=== PATIENT | female | born 1995 | race Caucasian/White ===

== ENCOUNTER 2017-02-10 23:28 | Emergency (ER) | payer OTHER ==
--- NOTE | 2017-02-11 03:05 | ED NURSING NOTES ---
Clinical Report - Nurses [facility] [address] [place] [address] 02/10/2017 23:32 Patient: HUMERA SYED TRIAGE Triage time 23:53. Acuity: LEVEL 3. Chief Complaint: ABDOMINAL PAIN and CONSTIPATION. 23:59. Alert. SEPSIS SCREEN: Sepsis Screen. Negative (no infection suspected/documented). --23:59 William Sosa R.N. 23:53 02/10/17. BP: 117/82. HR: 85. RR: 13. O2 saturation: 100%. Temp: 98.1 F (oral). Pain level now: 03/21. --23:59 William Sosa R.N. Weight: 62.5 kg stated. Height/Length: 64 inches Per Patient. BMI: 23.7. --23:55 William Sosa R.N. Medications Lexapro Oral 10 mg, daily. --23:54 William Sosa R.N. Iron Oral 324mg, daily. --23:54 William Sosa R.N. Medication/allergy information source: the patient. --23:59 William Sosa R.N. Allergies Amoxicillin. --23:55 William Sosa R.N. History Arrived by private vehicle. Historian: patient. Accompanied by friend. Primary physician (Talia). Onset. (1 weeks ago). ( Patient reports RLQ ABD pain for about 1 week, states she had heavier flow during her period last week, ,also reports some constipation, last BM today). Treatment VINEYARD TENDER: None. PAST MEDICAL HX: Immunizations: up-to-date. Last normal menstrual period- 1 weeks ago. SOCIAL HX: Never smoker. Occasional alcohol use. No drug use. No recent travel. No infectious disease exposure. ABUSE ASSESSMENT: No report of abuse. FALL RISK ASSESSMENT: Fall risk assessment completed. No fall risk identified. NUTRITIONAL RISK ASSESSMENT: The nutritional risk assessment revealed no deficiencies. FUNCTIONAL ASSESSMENT: Functional assessment: no impairments noted. LEARNING NEEDS ASSESSMENT: The learning needs assessment revealed no barriers. SKIN INTEGRITY ASSESSMENT: Skin integrity risk assessment completed. No skin integrity risk identified. --23:59 William Sosa R.N. PROBLEMS: Grave's Disease. --23:55 William Sosa R.N. ADDITIONAL SURGERIES: Ankle surgery . --23:55 William Sosa R.N. Interventions ID band on patient. To treatment room. --23:59 William Sosa R.N. PHYSICAL ASSESSMENT 00:01. Ambulatory to room. Patient gowned. GENERAL / NEURO / PSYCH: Alert. Oriented X 4. HEENT: Mucous membranes are pink. RESPIRATORY: Respirations not labored. SKIN: Skin is warm and dry. --00:01 William Sosa R.N. NURSING PROGRESS NOTES 00:00. Head of bed elevated. Two patient identifiers checked. Call light placed in reach. Bed placed in lowest position. Brakes of bed on. Patient ready for evaluation- chart flagged. --00:00 William Sosa R.N. 23:46. Patient ID band checked for patient name and birthdate: patient confirmed. Clean catch urine collected with return of yellow-colored clear urine; sample sent to lab for urinalysis and HCG. Specimen labeled in the presence of the patient. --00:00 William Sosa R.N. The patient is calm and resting quietly. SKIN: Skin is warm and dry. Skin color within normal limits. --00:59 William Sosa R.N. 00:58 02/11/17. BP: 108/69. HR: 62. RR: 14. O2 saturation: 99% on room air. --00:59 William Sosa R.N. 01:04 02/11/2017 Site #1 started via IV in the right antecubital space with an 20g angiocath, with aseptic technique and good blood return; one attempt. Blood drawn: rainbow set. Labeled in the presence of the patient and sent to the lab. Saline lock flushed with 10 mL saline. --01:09 William Sosa R.N. 02:19. Patient walked to CT with tech. --02:24 William Sosa R.N. 02:24. Patient walked back to ED from CT with tech. --02:24 William Sosa R.N. 03:14. The patient is calm and resting quietly. SKIN: Skin is warm and dry. Skin color within normal limits. --03:17 William Sosa R.N. DISPOSITION / DISCHARGE 03:09 02/11/2017 Site #1 removed upon discharge. Catheter intact. Bandage applied. --03:09 William Sosa R.N. Departure time: 03:17. Condition at departure: stable. No learning barriers present. Discharge instructions provided and reviewed with the patient. Patient verbalized understanding. Written instructions provided in Bruneian. The patient was discharged home and accompanied by cattle dealer. She left the Emergency Department ambulatory and via private vehicle. Residence Life Coordinator driving. FALL RISK ASSESSMENT: Fall risk assessment completed. No fall risk identified. --03:17 William Sosa R.N. 03:05 02/11/17. BP: 93/71. HR: 71. RR: 13. O2 saturation: 99% on room air. Pain level now: 11/21. --03:17 William Sosa R.N. Locked/Released at 02/11/2017 6:02 by William Sosa R.N.
--- NOTE | 2017-02-11 03:05 | ED CLINICAL REPORT ---
Clinical Report - Physicians/Mid Levels [facility] [address] [place] [address] 02/10/2017 23:32 Patient: HUMERA SYED Time Seen: 23:40. Arrived- By private vehicle. Historian- patient. HISTORY OF PRESENT ILLNESS Chief Complaint: ABDOMINAL PAIN. At its maximum, severity described as moderate. When seen in the E.D., severity described as mild. Modifying factors. Not worsened by anything. Not relieved by anything. It is described as "pain". No radiation. It is described as located in the right abdomen and right lower quadrant. This started about 1 week ago and is still present. No nausea, loss of appetite, vomiting or diarrhea. (PT states her last period was a little heavier than usual.). Similar symptoms previously: Once. Recent medical care: Not recently seen/assessed. REVIEW OF SYSTEMS No constipation, black stools, hematemesis, difficulty with urination or pain with urination. No urinary frequency, bloody stools, fever, headache or sore throat. No blurred vision, chest pain, difficulty breathing, cough or joint pain. No skin rash, chills or back pain. Denies current . All systems otherwise negative, except as recorded above. PAST HISTORY Problems: Grave's Disease. Additional Surgeries: Ankle surgery . Medications: Iron Oral 324mg, daily. Lexapro Oral 10 mg, daily. Allergies: Amoxicillin. SOCIAL HISTORY Never smoker. Occasional alcohol use. No drug use. ADDITIONAL NOTES The nursing notes have been reviewed. PHYSICAL EXAM Vital Signs: 02/10/2017 23:53 BP: 117/82. HR: 85. RR: 13. O2 saturation: 100%. Temp: 98.1 F. Pain level now: 5/10. Have been reviewed. Appearance: Alert. Oriented X3. No acute distress. Eyes: Pupils equal, round and reactive to light. Eyes normal inspection. ENT: Nose normal. Neck: Normal inspection. CVS: Normal heart rate and rhythm. Heart sounds normal. Pulses normal. Respiratory: No respiratory distress. Breath sounds normal. Abdomen: Soft. Mild tenderness in the right lower quadrant. No guarding or rebound tenderness. Back: Normal inspection. No CVA tenderness. Skin: Skin warm and dry. Normal skin color. No rash. Normal skin turgor. Extremities: Extremities exhibit normal ROM. No lower extremity edema. Neuro: Oriented X 3. No motor deficit. No sensory deficit. LABS, X-RAYS, AND EKG Abdominal CT: Normal study. Normal aorta. Normal liver, spleen, pancreas, gallbladder and adrenals. Normal kidneys. Uterus normal. Bladder normal. Appendix normal. No mass. No free fluid. No bony lesion. No diverticulitis. Study type: abdomen and pelvis. Abdominal CT performed with IV contrast. The study was independently viewed by me, interpreted by the radiologist and contemporaneously by me and discussed with the radiologist. Prior studies were not available for comparison. Laboratory Tests: UA-Culture if indicated: (FARHAD: 02/11/2017 00:01) ( [facility] 02/11/2017 00:12) Final results Test Result Flag Units (Reference) URINE COLOR YELLOW URINE APPEARANCE CLEAR URINE GLUCOSE NEGATIVE (NEGATIVE) URINE BILIRUBIN NEGATIVE (NEGATIVE) URINE KETONE NEGATIVE (NEGATIVE) URINE SPECIFIC GRAVITY 1.015 (1.010-1.030) URINE PH 6.5 (5.0-8.0) URINE PROTEIN NEGATIVE (NEGATIVE) URINE UROBILINOGEN 0.2 EU/dL (0.2-1.0) URINE NITRITE NEGATIVE (NEGATIVE) URINE BLOOD NEGATIVE (NEGATIVE) URINE LEUK ESTERASE NEGATIVE (NEGATIVE) URINE RBC 0-1 rbc/hpf (0-1) URINE WBC 0-1 wbc/hpf (0-1) URINE EPITHELIAL CELLS 0-1 EPI/hpf (0-5) URINE BACTERIA NONE SEEN (NONE SEEN) URINE COMMENT CULT NOT INDICATED URINE CULTURES ARE SET-UP BASED ON THE FOLLOWING CRITERIA:POSITIVE NITRITEPOSITIVE LEUKOCYTE ESTERASEGREATER THAN 10 WHITE BLOOD CELLSMODERATE (2+) OR GREATER BACTERIA Urine: (FARHAD: 02/11/2017 00:01) ( [facility] 02/11/2017 00:12) Final results Test Result Flag Units (Reference) URINE NEGATIVE CBC w Diff: (FARHAD: 02/11/2017 01:05) ( [facility] 02/11/2017 01:17) Final results Test Result Flag Units (Reference) WHITE BLOOD COUNT 8.9 K/uL (4.5-11.5) RED BLOOD COUNT 5.10 M/uL (4.00-5.20) HEMOGLOBIN 13.9 gm/dL (12.0-16.0) HEMATOCRIT 42.4 % (36.0-46.0) MEAN CELL VOLUME 83 fL (80-100) MEAN CORPUSCULAR HGB 27 pg (26-34) MEAN CORPUSCULAR HGB CONC 33 g/dL (31-37) RED CELL DISTRIBUTION WIDTH 18.8 H % (11.6-14.8) PLATELET COUNT 223 K/uL (150-400) NEUTROPHIL % 58.5 % (50-75) LYMPH % 33.5 % (25-40) MONO % 5.9 % (3-14) EOSINOPHIL % 2.1 % (0-4) BASOPHIL % 0 % (0-2) CMP: (FARHAD: 02/11/2017 01:05) ( Msg[facility]cvd 02/11/2017 01:26) Final results Test Result Flag Units (Reference) GLUCOSE 98 mg/dL (70-110) BUN 11 mg/dL (7-18) CREATININE 0.6 mg/dL (0.6-1.3) Estimated GFR >60 mL/min Estimated GFR- >60 mL/min Note: Persistent reduction over 3 months in eGFR<60 mL/min/1.73 m2 defines CKD. Patients with eGFR values>=60 mL/min/1.73 m2 may also have CKD if evidence ofpersistent proteinuria. Additional information may be foundat www.kidney.org. SODIUM 144 mmol/L (136-145) POTASSIUM 4.1 mmol/L (3.5-5.1) CHLORIDE 107 mmol/L (98-107) CARBON DIOXIDE 27 mmol/L (21-32) CALCIUM 9.2 mg/dL (8.5-10.1) TOTAL PROTEIN 7.2 g/dL (6.4-8.2) ALBUMIN 3.9 g/dL (3.3-5.0) BILIRUBIN, TOTAL 0.3 mg/dL (0.0-1.0) ALKALINE PHOSPHATASE 69 U/L (46-116) AST (SGOT) 14 L U/L (15-37) ALT (SGPT) 19 U/L (12-78) LIPASE 103 U/L (73-393) AMYLASE 30 U/L (25-115) . Pulse Oximetry: 02/10/2017 23:53 O2 saturation: 100%. (FIO2 - room air). Interpretation: normal. PROGRESS AND PROCEDURES Course of Care: Pt declined symptomatic management in the ED. She was worked up for her sx with potential ectopic or abscess in mind, among other things. Work-up was negative. No emergent condition identified. Patient counseled in person regarding the patient's stable condition, test results, diagnosis and need for follow-up. Concerns were addressed. Old medical records reviewed. Disposition: Discharged. Condition: stable and improved. CLINICAL IMPRESSION Acute right upper quadrant and right lower quadrant abdominal pain of unknown cause. INSTRUCTIONS Drink plenty of fluids. (Your labs and CT scan look good--no evidence of an emergent cause of your pain.). Warnings: GENERAL WARNINGS: Return or contact your physician immediately if your condition worsens or changes unexpectedly, if not improving as expected, or if other problems arise. Your Current Medications: CONTINUE TAKING THE FOLLOWING MEDICATIONS: Iron Oral : 324mg daily. Lexapro Oral : 10 mg daily. Follow-up: Follow up with your doctor as needed. Understanding of the discharge instructions verbalized by patient. (Electronically signed by Bell Benson MD 02/19/2017 13:12)
--- NOTE | 2017-02-11 03:05 | ED ORDER SUMMARY ---
..... Patient: HUMERA SYED OrderSheet [facility] VisitID: [id number] [place] [address] 21y, F Registration Date/Time: 02/10/2017 ORDER SHEET Weight: 62.5 kg (stated) Allergies: Amoxicillin GENERAL ORDERS: UA-Culture if indicated Urgent (00:00 02/11/2017 JQuivey R.N. per protocol) (0:16 CHagerty ER Ham Stringer) Urine Urgent (00:00 02/11/2017 JQuivey R.N. per protocol) (0:16 CHagerty ER Ham Stringer) CBC w Diff Urgent (01:09 02/11/2017 JQuivey R.N. per protocol) (Ack 1:40 CHategekimana) (2:24 JQuivey R.N.) CMP Urgent (01:09 02/11/2017 JQuivey R.N. per protocol) (Ack 1:40 CHategekimana) (2:24 JQuivey R.N.) Amylase Urgent (01:09 02/11/2017 JQuivey R.N. per protocol) (Ack 1:40 CHategekimana) (2:24 JQuivey R.N.) Lipase Urgent (01:09 02/11/2017 JQuivey R.N. per protocol) (Ack 1:41 CHategekimana) (2:24 JQuivey R.N.) CT Abd/Pel w Cont (No) (N/A) Urgent (02:00 02/11/2017 Pancho EVERETT) (Ack 2:04 CHategekimana) (2:24 RFay) MEDICATION ORDERS: IV FLUIDS: IV Saline Lock (01:27 02/11/2017 JQuivey R.N. per protocol) (1:27 JQuivey R.N.) ORDER SHEET NOTES: [Electronically signed by William Sosa R.N. (06:02 02/11/2017)] [Electronically signed by Bell Benson MD (13:12 02/19/2017)] [Electronically locked/signed by William Sosa R.N. (06:02 02/11/2017)]
--- NOTE | 2017-02-11 03:05 | ED NURSING NOTES ---
Clinical Report - Nurses [facility] [address] [place] [address] 02/10/2017 23:32 Patient: HUMERA SYED TRIAGE Triage time 23:53. Acuity: LEVEL 3. Chief Complaint: ABDOMINAL PAIN and CONSTIPATION. 23:59. Alert. SEPSIS SCREEN: Sepsis Screen. Negative (no infection suspected/documented). --23:59 William Sosa R.N. 23:53 02/10/17. BP: 117/82. HR: 85. RR: 13. O2 saturation: 100%. Temp: 98.1 F (oral). Pain level now: 03/21. --23:59 William Sosa R.N. Weight: 62.5 kg stated. Height/Length: 64 inches Per Patient. BMI: 23.7. --23:55 William Sosa R.N. Medications Lexapro Oral 10 mg, daily. --23:54 William Sosa R.N. Iron Oral 324mg, daily. --23:54 William Sosa R.N. Medication/allergy information source: the patient. --23:59 William Sosa R.N. Allergies Amoxicillin. --23:55 William Sosa R.N. History Arrived by private vehicle. Historian: patient. Accompanied by friend. Primary physician (Talia). Onset. (1 weeks ago). ( Patient reports RLQ ABD pain for about 1 week, states she had heavier flow during her period last week, ,also reports some constipation, last BM today). Treatment SMOKE CONTROL SUPERVISOR: None. PAST MEDICAL HX: Immunizations: up-to-date. Last normal menstrual period- 1 weeks ago. SOCIAL HX: Never smoker. Occasional alcohol use. No drug use. No recent travel. No infectious disease exposure. ABUSE ASSESSMENT: No report of abuse. FALL RISK ASSESSMENT: Fall risk assessment completed. No fall risk identified. NUTRITIONAL RISK ASSESSMENT: The nutritional risk assessment revealed no deficiencies. FUNCTIONAL ASSESSMENT: Functional assessment: no impairments noted. LEARNING NEEDS ASSESSMENT: The learning needs assessment revealed no barriers. SKIN INTEGRITY ASSESSMENT: Skin integrity risk assessment completed. No skin integrity risk identified. --23:59 William Sosa R.N. PROBLEMS: Grave's Disease. --23:55 William Sosa R.N. ADDITIONAL SURGERIES: Ankle surgery . --23:55 William Sosa R.N. Interventions ID band on patient. To treatment room. --23:59 William Sosa R.N. PHYSICAL ASSESSMENT 00:01. Ambulatory to room. Patient gowned. GENERAL / NEURO / PSYCH: Alert. Oriented X 4. HEENT: Mucous membranes are pink. RESPIRATORY: Respirations not labored. SKIN: Skin is warm and dry. --00:01 William Sosa R.N. NURSING PROGRESS NOTES 00:00. Head of bed elevated. Two patient identifiers checked. Call light placed in reach. Bed placed in lowest position. Brakes of bed on. Patient ready for evaluation- chart flagged. --00:00 William Sosa R.N. 23:46. Patient ID band checked for patient name and birthdate: patient confirmed. Clean catch urine collected with return of yellow-colored clear urine; sample sent to lab for urinalysis and HCG. Specimen labeled in the presence of the patient. --00:00 William Sosa R.N. The patient is calm and resting quietly. SKIN: Skin is warm and dry. Skin color within normal limits. --00:59 William Sosa R.N. 00:58 02/11/17. BP: 108/69. HR: 62. RR: 14. O2 saturation: 99% on room air. --00:59 William Sosa R.N. 01:04 02/11/2017 Site #1 started via IV in the right antecubital space with an 20g angiocath, with aseptic technique and good blood return; one attempt. Blood drawn: rainbow set. Labeled in the presence of the patient and sent to the lab. Saline lock flushed with 10 mL saline. --01:09 William Sosa R.N. 02:19. Patient walked to CT with tech. --02:24 William Sosa R.N. 02:24. Patient walked back to ED from CT with tech. --02:24 William Sosa R.N. 03:14. The patient is calm and resting quietly. SKIN: Skin is warm and dry. Skin color within normal limits. --03:17 William Sosa R.N. DISPOSITION / DISCHARGE 03:09 02/11/2017 Site #1 removed upon discharge. Catheter intact. Bandage applied. --03:09 William Sosa R.N. Departure time: 03:17. Condition at departure: stable. No learning barriers present. Discharge instructions provided and reviewed with the patient. Patient verbalized understanding. Written instructions provided in [place]an. The patient was discharged home and accompanied by pipe racker. She left the Emergency Department ambulatory and via private vehicle. Strategic Advisor driving. FALL RISK ASSESSMENT: Fall risk assessment completed. No fall risk identified. --03:17 William Sosa R.N. 03:05 02/11/17. BP: 93/71. HR: 71. RR: 13. O2 saturation: 99% on room air. Pain level now: 11/21. --03:17 William Sosa R.N. Locked/Released at 02/11/2017 6:02 by William Sosa R.N.
--- NOTE | 2017-02-11 03:05 | ED ORDER SUMMARY ---
..... Patient: HUMERA SYED OrderSheet [facility] VisitID: [id number] [place] [address] 21y, F Registration Date/Time: 02/10/2017 ORDER SHEET Weight: 62.5 kg (stated) Allergies: Amoxicillin GENERAL ORDERS: UA-Culture if indicated Urgent (00:00 02/11/2017 JQuivey R.N. per protocol) (0:16 CHagerty ER Intelligence Manager) Urine Urgent (00:00 02/11/2017 JQuivey R.N. per protocol) (0:16 CHagerty ER Intelligence Manager) CBC w Diff Urgent (01:09 02/11/2017 JQuivey R.N. per protocol) (Ack 1:40 CHategekimana) (2:24 JQuivey R.N.) CMP Urgent (01:09 02/11/2017 JQuivey R.N. per protocol) (Ack 1:40 CHategekimana) (2:24 JQuivey R.N.) Amylase Urgent (01:09 02/11/2017 JQuivey R.N. per protocol) (Ack 1:40 CHategekimana) (2:24 JQuivey R.N.) Lipase Urgent (01:09 02/11/2017 JQuivey R.N. per protocol) (Ack 1:41 CHategekimana) (2:24 JQuivey R.N.) CT Abd/Pel w Cont (No) (N/A) Urgent (02:00 02/11/2017 Pancho EVERETT) (Ack 2:04 CHategekimana) (2:24 RFay) MEDICATION ORDERS: IV FLUIDS: IV Saline Lock (01:27 02/11/2017 JQuivey R.N. per protocol) (1:27 JQuivey R.N.) ORDER SHEET NOTES: [Electronically signed by William Sosa R.N. (06:02 02/11/2017)] [Electronically signed by Bell Benson MD (13:12 02/19/2017)] [Electronically locked/signed by William Sosa R.N. (06:02 02/11/2017)]
--- NOTE | 2017-02-11 08:35 | DIAGNOSTIC IMAGING REPORT ---
PROCEDURE: CT ABD/PELVIS WITH CONTRAST INDICATION: Right abdominal pain. TECHNIQUE: 95 ml of Isovue 300 were injected intravenously and axial images were obtained of the entire abdomen and pelvis with sagittal and coronal reformations. Preliminary report provided by Christie Black MD ([facility]). COMPARISON: None. FINDINGS: ABDOMEN: Gallbladder, liver, spleen, pancreas, kidneys, and aorta are normal. Bowel pattern is normal, including appendix. PELVIS: T-shaped IUD in position. Uterus and adnexal structures are otherwise normal. No evidence of free fluid. IMPRESSION: 1. T-shaped IUD in position. 2. Otherwise negative CT abdomen and pelvis. All CT scans at this facility use dose modulation, iterative reconstruction, and/or weight-based dosing when appropriate to reduce radiation dose to as low as reasonably achievable.
--- NOTE | 2017-02-11 08:35 | DIAGNOSTIC IMAGING REPORT ---
PROCEDURE: CT ABD/PELVIS WITH CONTRAST INDICATION: Right abdominal pain. TECHNIQUE: 95 ml of Isovue 300 were injected intravenously and axial images were obtained of the entire abdomen and pelvis with sagittal and coronal reformations. Preliminary report provided by Christie Black MD ([facility]). COMPARISON: None. FINDINGS: ABDOMEN: Gallbladder, liver, spleen, pancreas, kidneys, and aorta are normal. Bowel pattern is normal, including appendix. PELVIS: T-shaped IUD in position. Uterus and adnexal structures are otherwise normal. No evidence of free fluid. IMPRESSION: 1. T-shaped IUD in position. 2. Otherwise negative CT abdomen and pelvis. All CT scans at this facility use dose modulation, iterative reconstruction, and/or weight-based dosing when appropriate to reduce radiation dose to as low as reasonably achievable.
--- NOTE | 2017-02-19 13:12 | ED MED RECONCILIATION SUMMARY ---
Patient: HUMERA SYED Medication Reconciliation Report [facility] VisitID: [id number] [address] [place] [address] 21y, F Registration Date/Time: 02/10/2017 Weight: 62.5 kg Height/Length: 64 in. BMI: 23.7 ALLERGIES: Amoxicillin The patient's Home Medications are listed below: CONTINUE TAKING THE FOLLOWING MEDICATIONS: Iron Oral 324mg, daily Lexapro Oral 10 mg, daily The source(s) of the original Home Medication information: patient The following Medications were given to the patient in the Emergency Department: None. The following Medications were prescribed to the patient: None.
--- NOTE | 2017-02-19 13:12 | ED MAR SUMMARY ---
..... Medication Administration Record [facility] [address] [place] [place] [id number] Patient: HUMERA SYED Visit ID: [id number] 21y, F Weight: 62.5 kg Height/Length: 64 in BMI: 23.7 ALLERGIES: Amoxicillin
--- NOTE | 2017-02-19 13:12 | ED DISCHARGE INSTRUCTIONS ---
Patient: HUMERA SYED General Instructions Located Within [facility] VisitID: [id number] [place] [address] 21y, F Registration Date/Time: 02/10/2017 Acute right upper quadrant and right lower quadrant abdominal pain of unknown cause. INSTRUCTIONS Drink plenty of fluids. (Your labs and CT scan look good--no evidence of an emergent cause of your pain.). Warnings: GENERAL WARNINGS: Return or contact your physician immediately if your condition worsens or changes unexpectedly, if not improving as expected, or if other problems arise. Your Current Medications: CONTINUE TAKING THE FOLLOWING MEDICATIONS: Iron Oral : 324mg daily. Lexapro Oral : 10 mg daily. Follow-up: Follow up with your doctor as needed. Understanding of the discharge instructions verbalized by patient. ADDITIONAL INFORMATION Abdominal Pain, Unknown Cause (Female) The exact cause of your abdominal (stomach) pain is not certain. This does not mean that this is something to worry about, or the right tests were not done. Everyone likes to know the exact cause of the problem, but sometimes with abdominal pain, there is no clear-cut cause, and this could be a good thing. The good news is that your symptoms can be treated, and you will feel better. Your condition does not seem serious now; however, sometimes the signs of a serious problem may take more time to appear. For this reason,it is important for you to watch for any new symptoms, problems,or worsening of your condition. Over the next few days, the abdominal pain may come and go, or be continuous. Other common symptoms can include nausea and vomiting. Sometimes it can be difficult to tell if you feel nauseous, you may just feel bad and not associate that feeling with nausea. Constipation, diarrhea, and a fever may go along with the pain. The pain may continue even if treated correctly over the following days. Depending on how things go, sometimes the cause can become clear and may require further or different treatment. Additional evaluations, medications, or tests may be needed. Home care Your health care provider may prescribe medications for pain, symptoms, or an infection. Follow the health care provider's instructions for taking these medications. General care Rest until your next exam. No strenuous activities. Try to find positions that ease discomfort. A small pillow placed on the abdomen may help relieve pain. Something warm on your abdomen (such as a heating pad) may help, but be careful not to burn yourself. Diet Do not force yourself to eat, especially if having cramps, vomiting, or diarrhea. Water is important so you do not get dehydrated. Soup may also be good. Sports drinks may also help, especially if they are not too acidic. Make sure you don't drink sugary drinks as this can make things worse. Take liquids in small amounts. Do not guzzle them. Caffeine sometimes makes the pain and cramping worse. Avoid dairy products if you have vomiting or diarrhea. Don't eat large amounts at a time. Wait a few minutes between bites. Eat a diet low in fiber (called a low-residue diet). Foods allowed include refined breads, white rice, fruit and vegetable juices without pulp, tender meats. These foods will pass more easily through the intestine. Avoid whole-grain foods, whole fruits and vegetables, meats, seeds and nuts, fried or fatty foods, dairy, alcohol and spicy foods until your symptoms go away. Follow-up care Follow up with your health care provider as instructed, or if your pain does not begin to improve in the next 24 hours. When to seek medical care Seek prompt medical care if any of the following occur: Pain gets worse or moves to the right lower abdomen New or worsening vomiting or diarrhea Swelling of the abdomen Unable to pass stool for more than three days Fever of 100.4F (38C) or higher, or as directed by your healthcare provider. Blood in vomit or bowel movements (dark red or black color) Jaundice (yellow color of eyes and skin) Weakness, dizziness Chest, arm, back, neck or jaw pain Unexpected vaginal bleeding or missed period Call 911 Call emergency services if any of the following occur: Trouble breathing Confusion Fainting or loss of consciousness Rapid heart rate Seizure You have been given the following additional information: Abdominal Pain, Unknown Cause, (Female) (Electronically signed by Bell Benson MD 02/19/2017 13:12)
--- NOTE | 2017-02-19 13:12 | ED MED RECONCILIATION SUMMARY ---
Patient: HUMERA SYED Medication Reconciliation Report [facility] VisitID: [id number] [address] [place] [address] 21y, F Registration Date/Time: 02/10/2017 Weight: 62.5 kg Height/Length: 64 in. BMI: 23.7 ALLERGIES: Amoxicillin The patient's Home Medications are listed below: CONTINUE TAKING THE FOLLOWING MEDICATIONS: Iron Oral 324mg, daily Lexapro Oral 10 mg, daily The source(s) of the original Home Medication information: patient The following Medications were given to the patient in the Emergency Department: None. The following Medications were prescribed to the patient: None.
--- NOTE | 2017-02-19 13:12 | ED MAR SUMMARY ---
..... Medication Administration Record [facility] [address] [place], [place] [id number] Patient: HUMERA SYED Visit ID: [id number] 21y, F Weight: 62.5 kg Height/Length: 64 in BMI: 23.7 ALLERGIES: Amoxicillin
== END 2017-02-11 03:17 | disposition home or self-care (01) ==
LOC: ED SRH 23:28
DX: R10.31 Right lower quadrant pain (principal); R10.32 Left lower quadrant pain; E05.00 Thyrotoxicosis with diffuse goiter without thyrotoxic crisis or storm; Z79.899 Other long term (current) drug therapy; Z88.0 Allergy status to penicillin
CPT/HCPCS: 90004; 90100; 92235; 92530; 93070; 95059